=== PATIENT | male | born 1945 | race Caucasian/White ===

== ENCOUNTER → 2020-02-15 10:11 | Outpatient (CLI) | payer MEDICARE, OTHER, SELFPAY ==
[2020-02-15 11:16] LABS: COVID19 -Nasal RAPID Negative (Negative)
== END ==
PROVIDERS: Visit Provider Nurse Practitioner
DX: Z01.812 Encounter for preprocedural laboratory examination (principal)
CPT/HCPCS: 87635

== ENCOUNTER → 2020-02-15 10:23 | Outpatient (CLI) | payer MEDICARE, OTHER, SELFPAY ==
--- NOTE | 2020-02-15 19:37 | DI.NM.S_ITS ---
DATE OF SERVICE: 02/15/2020 PROCEDURE: Exercise stress test. INDICATIONS: Shortness of breath. EXERCISE STRESS TEST: The patient underwent exercise stress test under the supervision of an attending staff. The patient walked on Daniel protocol for 6 minutes and 12 seconds and achieved 104 percent of target heart rate. Baseline blood pressure 140/82. Peak blood pressure 200/80. The patient achieved 7 METS of workload and functional aerobic impairment -1 percent. No chest pain or anginal symptoms. Baseline EKG revealed sinus rhythm with partial right bundle branch block. During stress, there were no convincing ischemic changes. No significant arrhythmias seen. CONCLUSION: Exercise stress test is negative for inducible ischemia. Achieved 7 METS of workload and functional aerobic impairment -1 percent. Normal hemodynamic response. No ischemic changes or significant arrhythmias. Overall low-risk exercise stress test. Rolando Slater - Jorje/meño doc#: [id number]/job#: [id number] dd: 02/15/2020 16:50:00 dt: 02/15/2020 19:25:00 DICTATING /COPIES TO: Glendy Fajardo MD COPIES MNE: ARISE;
== END ==
PROVIDERS: PCP Student in an Organized Health Care Education/Training Program; Referring Provider Student in an Organized Health Care Education/Training Program; Visit Provider Student in an Organized Health Care Education/Training Program
DX: Z01.812 Encounter for preprocedural laboratory examination (principal); R06.02 Shortness of breath; R06.09 Other forms of dyspnea
CPT/HCPCS: 87635; 93017

== ENCOUNTER → 2022-09-25 09:38 | Outpatient (CLI) | payer MEDICARE, OTHER, SELFPAY ==
--- NOTE | 2022-09-25 23:26 | DI.NM.S_ITS ---
DATE OF SERVICE: 09/25/2022 PROCEDURE PERFORMED: Exercise treadmill stress and rest myocardial perfusion imaging study with gating to assess ejection fraction and regional wall motion. ORDERING PROVIDER: Dr. Jeet Koch. INDICATIONS: The patient is a 77-year-old hyperlipidemic male with exertional dyspnea. CARDIAC STRESS: The patient was able to exercise for 6 minutes on a standard Daniel protocol, achieving 6.9 METS, suggesting average exercise capacity with an MIC of -3%. He had a normal heart rate and blood pressure response, achieving a maximum heart rate of 144 BPM (100% of his predicted maximum). He had no chest discomfort or other anginal symptoms. His resting ECG is normal and there are no significant ST-segment shifts or arrhythmias with stress. There were occasional isolated PVCs in recovery but no other arrhythmias. At 4 minutes, 40 seconds of exercise, at a heart rate of 140 BPM, 25.3 millicuries of technetium-99m Myoview was injected and he was imaged 10 minutes later using a gated SPECT acquisition protocol. Earlier in the day while at rest, he had been injected with 11.9 millicuries of technetium-99m Myoview and was imaged 20 minutes later, again using a gated SPECT acquisition protocol. FINDINGS: 1. Raw data: There is fair myocardial tracer uptake. The lung/heart ratio is normal at 0.14 with a normal TID ratio of 0.91. Unfortunately, the patient was unable to lie prone to obtain prone imaging to assess for diaphragmatic attenuation. 2. Quantitated gated SPECT: Post-stress ejection fraction is estimated at 73% without any focal wall motion abnormality. Specifically, the inferior wall appears to have normal contractility. The resting ejection fraction is 82% but visually appears similar to that of the post-stress ejection fraction. Resting end-diastolic volume is normal at 95 mL. There is mildly increased tracer activity in the right ventricular free wall with borderline right ventricular enlargement which can be a sign of a right ventricular overload condition. 3. Myocardial perfusion imaging: Post-stress supine images show a fairly normal myocardial perfusion pattern with a subtle defect in the inferior wall in a pattern consistent with diaphragmatic attenuation. Unfortunately, there are no prone images to assess for this. The resting images show a fairly similar perfusion pattern with subtle improvement in the midportion of the inferior defect. IMPRESSION: 1. Probable normal myocardial perfusion study for ischemia. 2. Subtle, predominantly fixed, but slightly reversible inferior perfusion defect that likely reflects diaphragmatic attenuation, although a previous nontransmural infarction with slight deepa-infarct ischemia cannot be entirely excluded but the absence of any focal wall motion abnormality mitigates against this. If present, the amount of ischemia occupies a small volume of myocardium and is low risk. 3. Normal left ventricular systolic function without any focal wall motion abnormality. There is mildly increased right ventricular tracer uptake and probable borderline right ventricular enlargement, which can be a sign of a right ventricular overload condition but clinical correlation is needed. 4. Average exercise capacity without angina or ECG evidence of ischemia. He had occasional isolated PVCs in recovery but no other arrhythmias. BryonBillyRolando - KENNY/rosa/allegra doc#: [id number]/job#: [id number] dd: 09/25/2022 16:48:00 dt: 09/25/2022 23:10:00 DICTATING /COPIES TO: Amando Roblero MD; Jeet Koch MD COPIES MNE: HODA;
== END ==
PROVIDERS: PCP Student in an Organized Health Care Education/Training Program; Referring Provider Student in an Organized Health Care Education/Training Program; Visit Provider Student in an Organized Health Care Education/Training Program
DX: R06.09 Other forms of dyspnea (principal); E78.5 Hyperlipidemia, unspecified
CPT/HCPCS: 78452; 93017; A9502